=== PATIENT | male | born 1945 | race Caucasian/White ===

== ENCOUNTER 2025-02-06 22:24 | Inpatient (IN) | payer MEDICAID ==
[~2025-02-06] VITALS: Ht 154.9 cm; Wt 64.9 kg
[2025-02-06 22:29] VITALS: O2SAT 98
[2025-02-06] MEDS: ONDANSETRON HCL 4MG/2ML INJ IV NR (23:55)
[2025-02-07 00:52] LABS: BASOPHILS % 0.9 % (0.0-2.0); EOSINOPHILS % 0.1 % (0.0-5.0); HEMATOCRIT. 37.0 % (42.0-52.0); HEMOGLOBIN. 11.9 g/dL (14.0-18.0); LYMPHOCYTES % 13.5 % (20.0-50.0); MEAN PLATELET VOLUME 8.0 fl (7.4-10.4); MONOCYTES % 4.0 % (2.0-8.0); NEUTROPHILS % 81.5 % (40.0-76.0); PLATELET 126 x1000/uL (130-400); RED BLOOD CELL COUNT 4.21 mill/uL (4.7-6.1); RED CELL DISTRIBUTION WIDTH 20.2 % (11.6-14.6)
[2025-02-07 01:08] LABS: CREATININE 2.8 mg/dL (0.6-1.3)
[2025-02-07 01:09] LABS: ETHANOL BLOOD 181 mg/dL (<10); TROPONIN I HIGH SENSITIVITY 16 ng/L (3.0-53); UREA NITROGEN BLOOD 63 mg/dL (9-23)
[2025-02-07 01:10] LABS: ASPARTATE AMINOTRANSFERASE 44 IU/L (<34)
[2025-02-07 01:11] LABS: BILIRUBIN DIRECT 0.1 mg/dL (<=3.0); BILIRUBIN TOTAL 0.4 mg/dL (0.1-1.0); PROTEIN TOTAL 8.1 g/dL (6.0-8.3)
[2025-02-07 03:20] VITALS: BP 166/65; PULSE 107; RESP 18; TEMP 37.0852
[2025-02-07 03:50] VITALS: BP 153/67; PULSE 107; RESP 19; TEMP 37.1; O2SAT 98
[2025-02-07 08:00] VITALS: BP 138/79; PULSE 89; RESP 18; TEMP 36.3; O2SAT 95
[2025-02-07] MEDS ORDERED: MAGNESIUM/ALUMINUM HYDROXIDE/SIMETHICONE 30ML UDC PO PRN (08:45)
[2025-02-07] MEDS ORDERED: ACETAMINOPHEN 325MG TABLET PO PRN ×2 (08:45)
[2025-02-07] MEDS ORDERED: CLONIDINE 0.1MG TABLET PO PRN (08:45)
[2025-02-07] MEDS ORDERED: DOCUSATE SODIUM 100MG CAPSULE PO PRN (08:45)
[2025-02-07] MEDS ORDERED: GUAIFENESIN 200MG/10ML SUGAR FREE UDC PO PRN (08:45)
[2025-02-07] MEDS ORDERED: IPRATROPIUM/ALBUTEROL 0.5-3(2.5)MG/3ML NEB HHN ONE (08:45)
[2025-02-07] MEDS ORDERED: IPRATROPIUM/ALBUTEROL 0.5-3(2.5)MG/3ML NEB HHN PRN (08:45)
[2025-02-07] MEDS ORDERED: LORAZEPAM 2MG/ML UD SYRINGE IV PRN (09:00)
[2025-02-07] MEDS: LACTATED RINGERS 1,000 ML IV ONE (10:16)
[2025-02-07] MEDS: PANTOPRAZOLE SODIUM 40 MG/VIAL IV SCH (10:16)
[2025-02-07] MEDS: THIAMINE HCL 100MG TABLET PO SCH (10:16)
[2025-02-07] MEDS: ENOXAPARIN 30MG/0.3ML SYR SUBCUT SCH (10:16)
[2025-02-07] MEDS: AMLODIPINE 5MG TABLET PO SCH (10:17)
[2025-02-07] MEDS: MULTIVITAMINS,THER W-MINERALS TABLET PO SCH (10:17)
[2025-02-07] MEDS: FOLIC ACID 1MG TABLET PO SCH (10:17)
[2025-02-07] MEDS: ONDANSETRON HCL 4MG/2ML INJ IV PRN (10:34)
[2025-02-07 11:33] LABS: PHOSPHORUS 3.8 mg/dL (2.5-4.9)
[2025-02-07 12:00] VITALS: BP 145/85; PULSE 95; RESP 18; TEMP 36.3; O2SAT 96
[2025-02-07 12:56] LABS: FOLIC ACID (FOLATE) SERUM 8.65 ng/mL (>5.38); VITAMIN B12 SERUM 718 pg/mL (211-911)
[2025-02-07 13:27] LABS: HEPATITIS C AB NON REACTIVE (Neg) (Negative)
[2025-02-07] MEDS: CHLORDIAZEPOXIDE 25MG CAPSULE PO SCH (13:53)
[2025-02-07] MEDS: FOLIC ACID 1 MG, THIAMINE HCL 100 MG, MVI, ADULT NO.1 10 ML in SODIUM CHLORIDE 0.45% 1,... IV ONE (13:53)
[2025-02-07 14:57] LABS: TROPONIN I HIGH SENSITIVITY 19 ng/L (3.0-53)
[2025-02-07 16:45] VITALS: BP 110/69; PULSE 85; RESP 18; TEMP 36.2; O2SAT 96
[2025-02-07 20:00] VITALS: BP 128/57; PULSE 78; RESP 18; TEMP 36.6; O2SAT 96
[2025-02-08] VITALS: BP 122/51; PULSE 59; RESP 20; TEMP 35.9; O2SAT 96
[2025-02-08 00:22] LABS: TROPONIN I HIGH SENSITIVITY 16 ng/L (3.0-53)
[2025-02-08 04:00] VITALS: BP 102/57; PULSE 84; RESP 22; TEMP 36.1; O2SAT 94
[2025-02-08 05:40] LABS: TRIGLYCERIDE 114 mg/dL (0-150)
[2025-02-08 05:41] LABS: UREA NITROGEN BLOOD 53 mg/dL (9-23)
[2025-02-08 05:42] LABS: CREATININE 2.4 mg/dL (0.6-1.3)
[2025-02-08 05:43] LABS: LDL CHOLESTEROL 64 mg/dL (5-100); T4 FREE 0.62 ng/dL (0.89-1.76)
[2025-02-08 05:44] LABS: ASPARTATE AMINOTRANSFERASE 29 IU/L (<34)
[2025-02-08 05:45] LABS: BILIRUBIN DIRECT 0.3 mg/dL (<=3.0); BILIRUBIN TOTAL 0.9 mg/dL (0.1-1.0); PROTEIN TOTAL 6.6 g/dL (6.0-8.3)
[2025-02-08 07:26] LABS: BASOPHILS % 0.4 % (0.0-2.0); EOSINOPHILS % 1.6 % (0.0-5.0); HEMATOCRIT. 31.9 % (42.0-52.0); HEMOGLOBIN. 10.4 g/dL (14.0-18.0); LYMPHOCYTES % 21.8 % (20.0-50.0); MEAN PLATELET VOLUME 8.1 fl (7.4-10.4); MONOCYTES % 4.7 % (2.0-8.0); NEUTROPHILS % 71.5 % (40.0-76.0); PLATELET 76 x1000/uL (130-400); RED BLOOD CELL COUNT 3.70 mill/uL (4.7-6.1); RED CELL DISTRIBUTION WIDTH 18.6 % (11.6-14.6)
[2025-02-08 08:00] VITALS: BP 107/62; PULSE 85; RESP 18; TEMP 36.6; O2SAT 96
[2025-02-08] MEDS: LEVOTHYROXINE SODIUM 100MCG TABLET PO SCH (09:44)
[2025-02-08 09:57] LABS: CLARITY URINE CLEAR (CLEAR); COLOR URINE YELLOW (YELLOW); GLUCOSE URINE NEGATIVE (NEGATIVE); KETONES URINE 1+ (NEGATIVE); LEUKOCYTE ESTERASE URINE NEGATIVE (NEGATIVE); NITRITE URINE NEGATIVE (NEGATIVE); OCCULT BLOOD URINE 1+ (NEGATIVE); PH URINE 5.5 (4.5-8.0); PROTEIN URINE 2+ (NEGATIVE); SPECIFIC GRAVITY URINE 1.011 (1.005-1.030); UROBILINOGEN URINE 0.2 E.U./dL (0.2-1.0)
[2025-02-08 10:07] LABS: SQUAMOUS EPITHELIAL CELL URINE RARE /lpf (RARE/1+)
[2025-02-08 10:08] LABS: BACTERIA URINE TRACE; RBC URINE 0-2 /hpf (0-2); WBC URINE 0-2 /hpf (0-2)
[2025-02-08 10:17] LABS: *AMPHETAMINES SCREEN URINE NEGATIVE (NEGATIVE)
[2025-02-08 10:18] LABS: *BARBITURATES SCREEN URINE NEGATIVE (NEGATIVE); *BENZODIAZEPINES SCREEN URINE NEGATIVE (NEGATIVE); *COCAINE SCREEN URINE NEGATIVE (NEGATIVE); CANNABINOID URINE SCREEN NEGATIVE (NEGATIVE); ECSTASY MDMA SCREEN URINE NEGATIVE (NEGATIVE); METHADONE URINE SCREEN NEGATIVE (NEGATIVE); OPIATES URINE SCREEN NEGATIVE (NEGATIVE); PHENCYCLIDINE URINE SCREEN NEGATIVE (NEGATIVE)
[2025-02-08 16:00] VITALS: BP 127/67; PULSE 94; RESP 16; TEMP 36.5; O2SAT 96
[2025-02-08 20:00] VITALS: BP 149/64; PULSE 100; RESP 19; TEMP 36.6; O2SAT 98
[2025-02-09] VITALS: BP_SYST 103; BP_SYST 135; BP_DIAS 64; BP_DIAS 72; PULSE 100; RESP 19; TEMP 36.8; O2SAT 100
[2025-02-09 04:00] VITALS: BP 117/63; PULSE 95; RESP 19; TEMP 36.7; O2SAT 98
[2025-02-09 06:44] LABS: BASOPHILS % 0.4 % (0.0-2.0); EOSINOPHILS % 2.0 % (0.0-5.0); HEMATOCRIT. 32.1 % (42.0-52.0); HEMOGLOBIN. 10.6 g/dL (14.0-18.0); LYMPHOCYTES % 20.4 % (20.0-50.0); MEAN PLATELET VOLUME 8.0 fl (7.4-10.4); MONOCYTES % 5.4 % (2.0-8.0); NEUTROPHILS % 71.8 % (40.0-76.0); PLATELET 66 x1000/uL (130-400); RED BLOOD CELL COUNT 3.77 mill/uL (4.7-6.1); RED CELL DISTRIBUTION WIDTH 18.4 % (11.6-14.6)
[2025-02-09 06:58] LABS: CREATININE 1.8 mg/dL (0.6-1.3); UREA NITROGEN BLOOD 38.0 mg/dL (9-23)
[2025-02-09 08:00] VITALS: BP 119/75; PULSE 96; RESP 20; TEMP 36.3; O2SAT 98
[2025-02-09] MEDS ORDERED: AMLO5TAB88 PO (10:55)
[2025-02-09] MEDS ORDERED: THIA100T72 PO (10:55)
[2025-02-09] MEDS ORDERED: FOLI-43 PO (10:55)
[2025-02-09] MEDS ORDERED: LEVO100T9 PO (10:55)
[2025-02-09 12:00] VITALS: BP 118/86; PULSE 96; RESP 20; TEMP 35.9; O2SAT 100
[2025-02-09 16:00] VITALS: BP 126/79; PULSE 97; RESP 20; TEMP 36.4; O2SAT 100
[2025-02-09 20:00] VITALS: BP_SYST 132; BP_SYST 141; BP_DIAS 75; BP_DIAS 80; PULSE 102; RESP 20; TEMP 36.6; O2SAT 96
[2025-02-10] VITALS: BP 137/80; PULSE 88; RESP 20; TEMP 36.7; O2SAT 96
[2025-02-10 04:00] VITALS: BP 121/69; PULSE 88; RESP 18; TEMP 36.6; O2SAT 100
[2025-02-10 08:29] VITALS: BP 125/71; PULSE 91; RESP 18; TEMP 36.5; O2SAT 97
[2025-02-10 11:01] LABS: BASOPHILS % 0.3 % (0.0-2.0); EOSINOPHILS % 3.1 % (0.0-5.0); HEMATOCRIT. 34.2 % (42.0-52.0); HEMOGLOBIN. 11.4 g/dL (14.0-18.0); LYMPHOCYTES % 24.0 % (20.0-50.0); MEAN PLATELET VOLUME 7.9 fl (7.4-10.4); MONOCYTES % 4.9 % (2.0-8.0); NEUTROPHILS % 67.7 % (40.0-76.0); PLATELET 60 x1000/uL (130-400); RED BLOOD CELL COUNT 3.99 mill/uL (4.7-6.1); RED CELL DISTRIBUTION WIDTH 18.3 % (11.6-14.6)
[2025-02-10 11:27] LABS: CREATININE 1.7 mg/dL (0.6-1.3)
[2025-02-10 11:28] LABS: UREA NITROGEN BLOOD 28.0 mg/dL (9-23)
[2025-02-10 12:32] VITALS: BP 113/75; PULSE 91; RESP 18; TEMP 37.4; O2SAT 95
[2025-02-10 17:21] VITALS: BP 117/70; PULSE 86; RESP 18; TEMP 37.1; O2SAT 97
[2025-02-10 20:00] VITALS: BP 128/97; PULSE 88; RESP 18; TEMP 36.6; O2SAT 97
[2025-02-11] VITALS (8 sets, daily range): BP systolic 110–125; BP diastolic 60–72; PULSE 86–93; RESP 18; TEMP 36.4–37.3; O2SAT 95–98
[2025-02-11 13:07] LABS: ANTI-MYELOPEROXIDASE AB < 0.2 units (0.0-0.9); ANTI-PROTEINASE 3 ABS < 0.2 units (0.0-0.9)
[2025-02-11 19:10] LABS: ATYPICAL P-ANCA <1:20 titer (Neg:<1:20); CYTOPLASMIC C-ANCA <1:20 titer (Neg:<1:20); PERINUCLEAR P-ANCA <1:20 titer (Neg:<1:20)
[2025-02-12] VITALS: BP 130/68; PULSE 91; RESP 20; TEMP 37.1; O2SAT 99
[2025-02-12 04:00] VITALS: BP 108/75; PULSE 96; RESP 18; TEMP 37.4; O2SAT 99
[2025-02-12 08:00] VITALS: BP 128/75; PULSE 93; RESP 18; TEMP 36.4; O2SAT 97
[2025-02-12 11:10] VITALS: BP 117/78; PULSE 95; RESP 18; TEMP 36.4; O2SAT 90
== END 2025-02-12 11:46 ==
LOC: ER 22:24 → 7WST 02-07 01:46 → EDBEDREQ 02-07 02:03 → EDBEDREQTM 02-07 02:03 → ENRESERV 02-07 02:36
PROVIDERS: ADMIT Internal Medicine; ATTEND Internal Medicine
DX: K80.00 Calculus of gallbladder with acute cholecystitis without obstruction (principal); K76.7 Hepatorenal syndrome; G92.8 Other toxic encephalopathy; E87.0 Hyperosmolality and hypernatremia; E87.20 Acidosis, unspecified; D63.8 Anemia in other chronic diseases classified elsewhere; N17.9 Acute kidney failure, unspecified; G90.89 Other disorders of autonomic nervous system; E86.0 Dehydration; D69.59 Other secondary thrombocytopenia; L85.3 Xerosis cutis; N18.9 Chronic kidney disease, unspecified; S80.211A Abrasion, right knee, initial encounter; D72.819 Decreased white blood cell count, unspecified; I13.10 Hypertensive heart and chronic kidney disease without heart failure, with stage 1 through stage 4 chronic kidney disease, or unspecified chronic kidney disease; W18.39XA Other fall on same level, initial encounter; K76.0 Fatty (change of) liver, not elsewhere classified; E03.9 Hypothyroidism, unspecified; K74.60 Unspecified cirrhosis of liver; F10.929 Alcohol use, unspecified with intoxication, unspecified; F10.939 Alcohol use, unspecified with withdrawal, unspecified; Y90.6 Blood alcohol level of 120-199 mg/100 ml; Y93.89 Activity, other specified; Z79.899 Other long term (current) drug therapy; Y92.89 Other specified places as the place of occurrence of the external cause; Y99.8 Other external cause status
CPT/HCPCS: 36415; 71045; 74176; 76700; 80048; 80061; 80076; 80305; 80320; 81003; 82550; 82607; 82728; 82746; 83520; 83540; 83550; 83605; 83735; 83880; 84100; 84145; 84439; 84443; 84484; 85025; 85044; 86256; 86705; 87340; 93005; 93970; 97110; 97116; 97162; 97166; 97530; 97535; 99285; J1650; J2405; J2470; J3411; J3490; G0480